=== PATIENT | female | born 1955 | race Caucasian/White ===

== ENCOUNTER 2019-02-13 13:46 | Emergency (ER) | payer MEDICARE ==
--- NOTE | 2019-02-13 15:33 | Emergency Department Record ---
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 no balance problem s. history of carotid stenosis and she thinks she has a stent in the right carotid and she has bruits in both carotids. chief complaint: Vision change Onset/Timin -: Hour(s) Onset Description: Awoke with symptoms Location: Right eye Place: Home If Injury: None Consistency: Constant Associated Symptoms: None Treatments Prior to Arrival: None - Related Data Allergies Allergy/AdvReac Type Severity Reaction Status Date / Time No Known Drug Allergies Allergy Unverified 02/13/19 13:19 Travel Screening - Travel/Exposure Within Last 30 Days Have you traveled within the last 30 days?: No Past Medical History - SOCIAL HISTORY Smoking Status: Never smoker Alcohol Use: None Drug Use: None - RESPIRATORY Hx Respiratory Disorders: No - CARDIOVASCULAR Hx Cardio Disorders: No - NEURO Hx Neuro Disorders: Yes Hx TIA: Yes (2008) - GI Hx GI Disorders: No - Hx Genitourinary Disorders: No - ENDOCRINE Hx Endocrine Disorders: No - MUSCULOSKELETAL Hx Musculoskeletal Disorders: No - PSYCH Hx Psych Problems: No - HEMATOLOGY/ONCOLOGY Hx Hematology/Oncology Disorders: No Family Medical History Any Significant Family History?: No Course Vital Signs 02/13/19 14:52 Temperature 98.1 F Pulse Rate 67 Respiratory 18 Rate Blood Pressure 162/74 Pulse Ox 96 - Reevaluation(s) Reevaluation #1: patient states she doesn't want to go to [facility] for a workup and she has an eye appointment with her eye Dr on saturday. outpatient treatment is to keep taking aspirin 325 mg daily and continue her plavix. Risk discussed 02/13/19 18:20 Medical Decision Making - Lab Data Result diagrams: 02/13/19 15:55 02/13/19 15:55 Disposition Clinical Impression: Blurred vision, right eye CVA (cerebral vascular accident) Qualifiers: CVA mechanism: occlusion Precerebral and cerebral artery: unspecified cerebral artery Qualified Code(s): I63.50 - Cerebral infarction due to unspecified oc clusion or stenosis of unspecified cerebral artery Disposition: Home, Self-Care Condition: (1) Good Instructions: Transient Ischemic Attack (ED) Additional Instructions: continue aspirin daily , continue plavix follow up with family Dr next week Time of Disposition: 18:25 Quality - Quality Measures Quality Measures: N/A - Blood Pressure Screening Does Patient Have Any of the Following: No, Active Dx of HTN Blood Pressure Classification: Hypertensive Reading Systolic Measurement: 162 Diastolic Measurement: 74 Screening for High Blood Pressure: Patient Exclusion, Hx of HTN [[id number]]
[2019-02-13 16:03] LABS: ABSOLUTE NEUTROPHIL COUNT 3.43; BASO % 0.2 % (0-6); GRAN % 60.6 % (47-80); HEMATOCRIT 37.5 % (35.0-47.0); HEMOGLOBIN 12.2 gm/dl (11.6-16.0); LYMPH % 32.7 % (16-45); MEAN CELL VOLUME 96.4 fl (81-97); MEAN CORPUSCULAR HEMOGLOBIN 31.4 pg (27-33); MEAN CORPUSCULAR HGB CONC 32.5 g/dl (32-36); MEAN PLATELET VOLUME 9.3 fl (7.4-10.4); MONO % 6.5 % (0-9); PLATELET COUNT 296 K/uL (130-400); RED BLOOD COUNT 3.89 M/uL (3.80-5.40); RED CELL DISTRIBUTION WIDTH 12.3 % (11.5-14.5); WHITE BLOOD COUNT W/O DIFF 5.7 K/uL (4.2-12.2)
[2019-02-13 16:17] LABS: BLOOD UREA NITROGEN 7 mg/dL (8-23); CREATININE 0.5 mg/dL (0.5-0.9); EST GLOMERULAR FILTRATION RATE > 60 mL/min
[2019-02-13 16:19] LABS: PROTHROMBIN TIME (PATIENT) 10.4 SECONDS (9.5-12.1)
[2019-02-13 16:20] LABS: GLUCOSE,RANDOM 93 mg/dL (74-109)
--- NOTE | 2019-02-14 22:22 | CT SCAN REPORT ---
EXAM: CT SCAN HEAD WO CONTRAST HISTORY: BLURRED VISION ON THE RIGHT. PRIOR STROKE BACK IN 2008. TECHNIQUE: Axial CT scan of the head performed without IV contrast. COMPARISON: None. FINDINGS: No definite acute intracranial hemorrhage identified. No focal mass effect or midline shift evident. Mild generalized atrophy. Prominent area of low attenuation on the right in the region of the insular cortex and extending up into the deep aspect of the right parietal lobe consistent with an old area of infarction. No definite acute infarct or intracranial mass lesion is seen. Small cyst or polyp in the left maxillary antrum. Mild membrane thickening inferiorly in the right frontal sinus. IMPRESSION: 1. NO DEFINITE ACUTE INTRACRANIAL HEMORRHAGE EVIDENT. 2. MILD GENERALIZED ATROPHY WITH AN OLD AREA OF INFARCTION ON THE RIGHT. 3. SMALL CYST OR POLYP IN THE LEFT MAXILLARY ANTRUM. JOB NUMBER: [id number] MTDD
== END 2019-02-13 18:38 | disposition home or self-care (01) ==
LOC: ER 13:46
DX: I63.50 Cerebral infarction due to unspecified occlusion or stenosis of unspecified cerebral artery (principal); H53.8 Other visual disturbances; I10 Essential (primary) hypertension; Z86.73 Personal history of transient ischemic attack (TIA), and cerebral infarction without residual deficits
CPT/HCPCS: 70450; 80048; 84484; 85025; 85610; 85730; 93005; 93010; 99285